=== PATIENT | female | born 1965 | race African-American/Black ===

== ENCOUNTER 2019-06-07 20:30 | Emergency (ER) | payer OTHER ==
[~2019-06-07] VITALS: Ht 162.6 cm; Wt 79.8 kg
[2019-06-07 20:37] VITALS: Ht 162.6 cm; Wt 79.8 kg
[2019-06-07 23:20] VITALS: BP 170/88
== END 2019-06-07 23:20 | disposition home or self-care (01) ==
LOC: ED 20:30
DX: L03.115 Cellulitis of right lower limb (principal); I10 Essential (primary) hypertension; Z88.2 Allergy status to sulfonamides; Z88.8 Allergy status to other drugs, medicaments and biological substances
CPT/HCPCS: J0690; J1885; Q0092